=== PATIENT | female | born 1975 | race Caucasian/White ===

== ENCOUNTER → 2017-06-04 | Outpatient (CLI) | payer OTHER ==
--- NOTE | 2017-06-05 09:41 | KCIC ---
Examination: MRI of the left shoulder without contrast HISTORY: History of AC joint separation, left shoulder pain, decreased range of motion. COMPARISON: None available TECHNIQUE: Multiplanar, multisequence MR imaging of the left shoulder performed without contrast FINDINGS: The long head of the biceps tendon is within the bicipital groove. The attachment of the long biceps tendon to the superior labral anchor grossly appears intact. The alignment of the subscapularis tendon, supraspinatus and infraspinatus tendon grossly appears intact. No evidence of full-thickness rotator cuff tear. The visualized labrum grossly appears unremarkable. There is superior subluxation of the distal clavicle in relation to the acromion with some joint effusion identified in the acromioclavicular joint with increased signal in the superior and inferior acromioclavicular ligaments likely AC joint separation. No significant edema identified in the coracoclavicular ligament region. There is mild trabecular edema identified in the distal clavicle and the acromion. Muscle bulk grossly appears unremarkable. IMPRESSION: 1. Superior translation of the distal clavicle in relation to the acromion probably AC joint separation possible type III. The coracoclavicular ligament demonstrate no evidence of edema or injury. There is AC joint effusion with increased signal identified in the superior and inferior acromioclavicular ligaments likely secondary to injury. Electronically signed by: Rene Anthony MD (06/05/2017 9:38 AM) [id number]
== END | disposition home or self-care (01) ==
LOC: KCIC MRI 10:37
PROVIDERS: ATTEND Orthopaedic Surgery
DX: M25.412 Effusion, left shoulder (principal)
CPT/HCPCS: 73221